=== PATIENT | female | born 1995 | race Caucasian/White ===

== ENCOUNTER 2016-10-26 20:32 | Emergency (ER) | payer BC, MEDICAID ==
[2016-10-26 20:46] VITALS: BP 106/76
[2016-10-26] MEDS ORDERED: Lidocaine 1% 50 ML MDV INJECT ONE (21:03)
--- NOTE | 2016-10-26 21:10 | EDM.PDOC ---
ED HPI Trauma - General Chief Complaint: Lower Extremity Injury/Pain Stated Complaint: BIG TOE ON LEFT FOOT STICKING UP Time Seen by Provider: 10/26/16 20:49 Source: Reports: Patient History Limitations: Reports: No limitations - History of Present Illness INITIAL COMMENTS - FREE TEXT/NARRATIVE: 21-year-old female presents for evaluation and treatment of a left toenail avulsion. Patient reports 1730 this evening she was attempting to move a bookcase when her left great toenail got caught underneath the bookcase partially avulsing the toenail. She states it bled initially and she is experiencing pain. She did not drop any heavy objects on the toenail does not feel that it is broken. Currently complaining of pain to the left great toe. She is here for removal. Tetanus is up-to-date. Occurred When: just prior to arrival Occurred Where: home Pain/Injury Location: Reports: lower extremity, left Allergies/ADRs: Allergies No Known Allergies Allergy (Verified 10/26/16 20:46) Home Medications: Ambulatory Orders medroxyPROGESTERone Acetate [Depo-Provera] 150 mg IM ASDIRECTED 10/26/16 [ Confirmed 10/26/16] Past Medical History - Past Health History Medical/Surgical History: Denies Medical/Surgical History HEENT History: Reports: Other (see below) Other HEENT History: wisdom teeth [employer] History: Reports: Endometriosis, , Other (see below) Other OB/BYN History: endometriosis surgery Social & Family History - Family History Family Medical History: Noncontributory - Tobacco Use Smoking Status *Q: Never Smoker - Caffeine Use Caffeine Use: Reports: None - Recreational Drug Use Recreational Drug Use: No Review of Systems - Review of Systems Review Of Systems: ROS reveals no pertinent complaints other than HPI. Trauma Exam - Physical Exam Exam: See Below Exam Limited By: No limitations General Appearance: Reports: alert, WD/WN, no apparent distress Respiratory Exam: Reports: no respiratory distress Cardiovascular: Reports: normal peripheral pulses (2+ dorsalis pedis and posterior tibialis pulses bilterally) Extremities: Reports: other (left great toenail 90% avulsion; medial proximal aspect attached; normal cap refill) Neurologic: Reports: alert, normal mood/affect Skin: Reports: Normal color, Warm/dry ED TRAUMA EXTREMITY PROCEDURES - Additional/Other Procedure(s) Other (Free Text) Procedure(s): Left great toe toenail removal. Verbal consent obtained. The left great toe was soaked in a solution of Shur-Clens and saline. The left great toenail had about a 90% avulsion from the trauma earlier. I cleansed the skin with alcohol swabs and injected 3 cc of 1% lidocaine without epinephrine into the great toe and performed a digital block. Anesthesia was obtained. I then used a hemostat and removed the remainder of the toenail. The patient tolerated the procedure well. No complications. Toe was bandaged with a nonstick and antibacterial ointment. Course - Vital Signs Last Recorded V/S: Last Vital Signs Temp 36.9 C 10/26/16 20:42 Pulse 78 10/26/16 20:42 Resp 18 10/26/16 20:42 BP 106/76 10/26/16 20:42 Pulse Ox 100 10/26/16 20:42 - Orders/Labs/Meds Meds: Medications Discontinued Medications Generic Name Dose Route Start Last Admin Trade Name Rodolfo PRN Reason Stop Dose Admin Lidocaine HCl 50 ml 10/26/16 21:03 10/26/16 21:50 Xylocaine 1% INJECT 10/26/16 21:04 50 ml ONETIME ONE Administration - Re-Assessments/Exams Free Text/Narrative Re-Assessment/Exam: 10/26/16 22:10 Decided against x-ray as the mechanism of injury was not consistent with a broken toe. Patient agreed to this. The nail was removed without complication. Her tetanus is up-to-date. Will discharge home. She declined medication for pain. Discharge instructions as documented. Departure - Departure Time of Disposition: 22:14 Disposition: Home, Self-Care 01 Condition: good Clinical Impression: Toenail avulsion Instructions: Nail Avulsion Referrals: PCP,None [Primary Care Provider] - Forms: ED Department Discharge Additional Instructions: Soaks with Epsom salts 3 times a day for 15-20 minutes. Monitor for signs of infection such as increased swelling, pus or redness. Present to the clinic or the ER should these develop. Keep the wound covered. Apply antibacterial ointment such as bacitracin or Neosporin and a bandage. [id number] Tylenol or Motrin as needed for pain relief. May take about 3 months for your toenail to grow back. On rare occasions toenails do not grow back or take longer than expected. Please return to the ER if your symptoms change or worsen.
== END 2016-10-26 22:30 | disposition home or self-care (01) ==
LOC: JD.ED 20:32
DX: S91.202A Unspecified open wound of left great toe with damage to nail, initial encounter (principal); W22.03XA Walked into furniture, initial encounter
CPT/HCPCS: 11730; 11760; 99282; 99283-25

== ENCOUNTER 2023-02-08 19:40 | Emergency (ER) | payer BC, MEDICAID, OTHER ==
[2023-02-08] MEDS ORDERED: Sodium Chloride 0.9% 10 ML Syringe FLUSH PRN (20:16)
[2023-02-08 20:32] LABS: BASOPHILS ABSOLUTE AUTO 0.05 K/mm3 (0.01-0.08); BASOPHILS PERCENT AUTO 0.6 % (0.1-1.2); EOSINOPHILS ABSOLUTE AUTO 0.39 K/mm3 (0.04-0.36); HEMOGLOBIN 13.6 gm/dl (11.2-15.7); IMMATURE GRAN ABSOLUTE AUTO 0.02 K/mm3 (0.00-0.10); IMMATURE GRAN PERCENT AUTO 0.3 % (<=1.0); LYMPHOCYTES ABSOLUTE AUTO 2.93 K/mm3 (1.18-3.74); LYMPHOCYTES PERCENT AUTO 37.8 % (19.3-51.7); MEAN CORPUSCULAR HEMOGLOBIN 30.8 pg (25.6-32.2); MEAN CORPUSCULAR HGB CONC 33.2 g/dl (32.2-35.5); MONOCYTES ABSOLUTE AUTO 0.55 K/mm3 (0.24-0.36); MONOCYTES PERCENT AUTO 7.1 % (4.7-12.5); NEUTROPHILS ABSOLUTE AUTO 3.82 K/mm3 (1.56-6.13); NEUTROPHILS PERCENT AUTO 49.2 % (34.0-71.1); PLATELET COUNT,PLT 332 K/mm3 (182-369); RED BLOOD CELL COUNT 4.41 M/mm3 (3.98-5.22); WHITE BLOOD CELL COUNT,WBC 7.76 K/mm3 (3.98-10.04)
[2023-02-08] MEDS ORDERED: Sodium Chloride 0.9% 1,000 ML IV STA (20:32)
[2023-02-08] MEDS ORDERED: Ondansetron 4 MG/2 ML SDV IVPUSH ONE (20:32)
[2023-02-08] MEDS ORDERED: HYDROmorphone 0.5 MG/0.5 ML Syringe IVPUSH ONE (20:32)
[2023-02-08 20:53] LABS: ALANINE AMINOTRANSFERASE,ALT 17 U/L (14-59); ALBUMIN 4.3 g/dl (3.4-5.0); ALKALINE PHOSPHATASE 60 U/L (46-116); ANION GAP 14.5 (5-15); ASPARTATE AMNIOTRANSFERASE,AST 13 U/L (15-37); BILIRUBIN TOTAL 0.3 mg/dL (0.2-1.0); BLOOD UREA NITROGEN,BUN 10 mg/dL (7-18); BUN/CREATININE RATIO 11.1 (14-18); C-REACTIVE PROTEIN <0.2 mg/dL (<1.0); CALCIUM 9.1 mg/dL (8.5-10.1); CARBON DIOXIDE,CO2 27 mEq/L (21-32); CHLORIDE,CL 102 mEq/L (98-107); CREATININE 0.9 mg/dL (0.55-1.02); EST CRCL DRUG DOSING (CG) 91.31 mL/min; ESTIMATED GFR 90 mL/min (>60); GLUCOSE RANDOM 96 mg/dL (70-99); LIPASE 84 U/L (73-393); POTASSIUM,K 3.5 mEq/L (3.5-5.1); PROTEIN TOTAL,TP 8.5 g/dl (6.4-8.2); SODIUM,NA 140 mEq/L (136-145)
[2023-02-08 20:59] VITALS: BP 134/88; PULSE 94
[2023-02-08] MEDS ORDERED: Sucralfate Suspension 1 GM/10 ML Cup PO ONE (21:58)
== END 2023-02-08 22:42 | disposition home or self-care (01) ==
LOC: JD.ED 19:40
DX: R10.11 Right upper quadrant pain (principal); R10.13 Epigastric pain
CPT/HCPCS: 36415; 76705; 80053; 83690; 84703; 85025; 86140; 96374; 96375; 99284; A9270; J1170; J2405; J7030